=== PATIENT | female | born 1990 | race African-American/Black ===

== ENCOUNTER 2020-11-17 14:05 | Emergency (ER) | payer OTHER ==
[~2020-11-17] VITALS: Ht 154.9 cm; Wt 90.0 kg
[2020-11-17 14:09] VITALS: BP 121/72
[2020-11-17] MEDS ORDERED: PENI500T MT (20:39)
[2020-11-17] MEDS ORDERED: IBUP-2030 MT (20:39)
== END 2020-11-17 16:02 | disposition left against medical advice (07) ==
LOC: ER 14:05
DX: K08.89 Other specified disorders of teeth and supporting structures (principal); Z53.21 Procedure and treatment not carried out due to patient leaving prior to being seen by health care provider

== ENCOUNTER 2020-11-17 17:23 | Emergency (ER) | payer MEDICAID, OTHER ==
[~2020-11-17] VITALS: Ht 154.9 cm; Wt 82.1 kg
[2020-11-17 17:32] VITALS: BP 126/78
[2020-11-17] MEDS ORDERED: PENI500T MT (20:39)
[2020-11-17] MEDS ORDERED: IBUP-2030 MT (20:39)
== END 2020-11-17 20:40 | disposition home or self-care (01) ==
LOC: ER 17:23
DX: K02.9 Dental caries, unspecified (principal); J45.909 Unspecified asthma, uncomplicated; F14.10 Cocaine abuse, uncomplicated; F12.10 Cannabis abuse, uncomplicated
CPT/HCPCS: 99281